=== PATIENT | female | born 1945 | race Caucasian/White ===

== ENCOUNTER 2016-06-02 16:14 | Inpatient (IN) | payer MEDICARE ==
[~2016-06-02] VITALS: Ht 172.7 cm; Wt 74.1 kg
[2016-06-02 22:42] VITALS: BP 137/78; Ht 172.7 cm; Wt 74.1 kg
[2016-06-03 01:00] VITALS: BP 136/76
[2016-06-03 03:31] LABS: BASOPHILS 0.3 % (0.0-2.0); EOSINOPHILS 0.1 % (0-7); HEMOGLOBIN 10.5 g/dL (12-16); IMMATURE GRANULOCYTES 0.1 % (0-5); MCH 34.2 pg (26.0-34.0); MCHC 32.8 g/dL (31.0-37.0); MCV 104.2 fL (80.0-100.0); MEAN PLATELET VOLUME 9.8 fL (7.4-10.4); MONOCYTES 7.1 % (2-11); NEUTROPHILS 79.4 % (40-80); PLATELET COUNT 163 10x3/uL (130-400); RBC 3.07 10x6/uL (4.00-5.40); RDW 13.2 % (11.5-14.5); WBC 7.5 10x3/uL (4.8-10.8)
[2016-06-03 03:43] LABS: APTT 29.7 SECONDS (22.8-39.4); INR 0.99 (0.85-1.17); PROTIME 12.9 SECONDS (11.6-15.0)
[2016-06-03 03:50] LABS: ALBUMIN 3.2 g/dL (3.4-5.0); ALKALINE PHOSPHATASE 44 U/L (46-116); ALT (SGPT) 19 U/L (10-68); BILIRUBIN - TOTAL 0.49 mg/dL (0.2-1.3); CALC OSMOLALITY 282 mosm/kg (275-300); CALCIUM 8.9 mg/dL (8.5-10.1); CHLORIDE - SERUM 104 mmol/L (98-107); CREATININE - SERUM 0.8 mg/dL (0.6-1.3); GLUCOSE 132 mg/dL (74-106); POTASSIUM - SERUM 4.2 mmol/L (3.5-5.1); PROTEIN - SERUM 6.3 g/dL (6.4-8.2); SODIUM 140 mmol/L (136-145); UREA NITROGEN 18 mg/dL (7-18); eGFR NON AFRICAN AMERICAN 75 mL/min (90-120)
[2016-06-03 05:00] VITALS: BP 107/62; BP 125/71; BP 157/74
[2016-06-03 08:12] VITALS: BP 108/69
[2016-06-03] MEDS ORDERED: PAXIL20 MG PO (08:29)
[2016-06-03] MEDS ORDERED: SYNTHROID25 MCG (08:31)
--- NOTE | 2016-06-03 08:53 | NUR ---
PATIENT IS AWAKE, ALERT AND ORIENTED X'S 4. RESPIRATIONS ARE EVEN AND UNLABORED ON ROOM AIR. PATIENT IS REMOVING HER DENTURES. VETERINARY TOXICOLOGIST IS CHANGING LINENS. PATIENT HAS A SLING INTO TO LEFT ARM. PATIENT GOT INTO THE BED. ADMINISTERED PEPCID IV, ORDERED FOR PRE-OP. NURSE FROM SURGERY, AND NURSE ANETHESIS IS IN ROOM TO GET PATIENT. PATIENT DENIES NEEDS. NO SIGNS OF DISTRESS NOTED.
--- NOTE | 2016-06-03 10:06 | NUR ---
0935: UNABLE TO PLACE SCD ON PATIENT. RIGHT ARM RESERVED BECAUSE PATIENT HAS HAD A MASTECTOMY WITH LYMPHNODE REMOVAL. BLOOD PRESSURE CUFF ON LEFT ANKLE AND IV IN RIGHT ANKLE. DR GARCIA NOTIFIED. -ECOSTER
--- NOTE | 2016-06-03 10:11 | NUR ---
1005: PRIOR TO PROCEDURE PT STATED THAT HER WAS HEADED TO THE HOSPITAL. ATTEPTED TO REACH FAMILY EXT 2500,2525, AND 2209. UNABLE TO REACH FAMILY
--- NOTE | 2016-06-03 11:12 | NUR ---
PRE OP BP 160/78. THE PATIENT WAS SHIVERING DEMEROL ADMIN WITHOUT RELIEF AND WAS SHAKING PRIOR TO SURGERY. BP NOTED TO BE MORE LABILE THE MORE SHASKING THAT SHE HAD. WARM BLANKETS PLACED ALL AROUND THE PATIENT.
[2016-06-03 11:27] VITALS: BP 150/78
[2016-06-03 16:48] VITALS: BP 127/62
--- NOTE | 2016-06-03 19:15 | NUR ---
ASSESSMENT COMPLETED, NO DISTRESS NOTED, HOB ELEVATED 40 DEGREES, DSG TO L SHOULDER IN PLACE, ARM IN SLING, IV INFUSING TO R FOOT, DENIES NEEDS AT THIS TIME, FALL PRECATIONS IN PLACE, CL IN REACH, WILL MONITOR
--- NOTE | 2016-06-03 19:33 | NUR ---
PT ON BEDPAN, URINATED 350CC, ASSESSMENT COMPLETED, NO ACUTE DISTRESS NOTED, DSG TO L SHOULDER CDI, HOB ELEVATED 40 DEGREES, DENIES NEEDS AT THIS TIME, FALL PRECAUTION IN PLACE, CL IN REACH, WILL MONITOR
--- NOTE | 2016-06-03 19:41 | NUR ---
URINE OUTPUT OF 350
--- NOTE | 2016-06-03 20:39 | NUR ---
COLACE GIVEN PER MAR, LEAH WELL, L ARM SLING IN PLACE, ICE PACK PLACED PER ORDERS, DENIES NEEDS, HOB ELEVATED, CL IN REACH
[2016-06-03 21:00] VITALS: BP 151/76
--- NOTE | 2016-06-03 23:03 | NUR ---
IV AB'S HUNG PER MAR, LEAH WELL, ASSISTED ON BEDPAN, DENIES FURTHER NEEDS, HOB ELEVATED, ICE PACK IN PLACE TO L SHOULDER, SR'S UP, CL IN REACH
[2016-06-04] VITALS: BP 142/66
--- NOTE | 2016-06-04 02:40 | NUR ---
REPORT GIVEN TO VISHAL FUNEZ
--- NOTE | 2016-06-04 03:13 | NUR ---
PATIENT RESTING COMFORTABLY, NO NEEDS NOTED AT THIS TIME. DILADID LICENSED PRACTICAL VOCATIONAL NURSE IN USE AND CALL LIGHT WITHIN REACH. BED IN LOWEST LOCKED POSITION WITH HOB ELEVATED 30 DEGREES.
[2016-06-04 04:00] VITALS: BP 137/63
[2016-06-04 06:24] LABS: HEMATOCRIT 26.2 % (36.0-48.0); HEMOGLOBIN 8.7 g/dL (12-16)
--- NOTE | 2016-06-04 07:30 | NUR ---
PATIENT RECEIVED ALERT IN BED. NO SIGNS OF DISTRESS NOTED. DENIES NEEDS. SIDE RAILS UP X2. BED IN LOW POSITION. CALL LIGHT IN REACH.
--- NOTE | 2016-06-04 08:00 | NUR ---
PATIENT ASSISTED UP TO CHAIR AT BEDSIDE. WELL TOLERATED. SCHEDULED MEDICATION ADMINISTERED. CALL LIGHT IN REACH. LEFT ARM PROPPED ON PILLOW. DENIES NEEDS.
[2016-06-04] MEDS ORDERED: PERCOCET 10/3251 TA1 PO ×2 (08:25→08:34)
[2016-06-04 08:37] VITALS: BP 165/93
--- NOTE | 2016-06-04 09:51 | NUR ---
Patient Name: GABRIELLE ZARATE Admission Status: ER Accout number: [id number] Admission Date: 06-02-2016 : 1945 Admission Diagnosis: Attending: SAMIA Current LOS: 2 Anticipated DC Date: 06-04-2016 Planned Disposition: Home Primary Insurance: [employer] ADV Discharge Planning Comments: CM MET WITH PATIENT REGARDING D/C NEEDS AND PLANS. PATIENT STATED SHE LIVES WITH HER SPOUSE AND HE WILL PICK HER UP TODAY BETWEEN 12-1PM. PATIENT STATED HER SPOUSE WILL DRIVE HER HOME AT DISCHARGE. PATIENT STATED SHE HAS GRAB BARS TO ENTER HER HOME THROUGH HER GARAGE AND NO STAIRS ONCE INSIDE. PATIENTS PCP IS DR. BARROW AND PHARMACY IS [facility]. PATIENT STATED SHE IS INDEPENDENT WITH HER CARE AND HAS HAND RAILS IN THE BATHROOM AND STATED SHE HAS NO OTHER DME. PATIENT DENIED ANY NEEDS FOR DISCHARGE. CM WILL CONTINUE TO FOLLOW PATIENT WITH D/C NEEDS AND PLANS. PCP DR. BARROW [facility]- [phone] CHANO JULES (SPOUSE) [phone] Accounts Receivable Manager: Nathalie Martinez Is the patient Alert and Oriented? Yes 0 * How many steps to enter\exit or inside your home? 3/GRAB BAR 0 * PCP DR. BARROW 0 * Pharmacy [facility] 0 * Preadmission Environment Home with Family 0 * ADLs Independent 0 * Equipment Other 0 * Other Equipment GRAB BARS IN BATHROOM AND GARAGE ENTRANCE 0 * List name and contact numbers for known caregivers / representatives who currently or will assist patient after discharge: CHANO JULES (SPOUSE) [phone] * Additional services required to return to the preadmission environment? Yes 0 * Can the patient safely return to the preadmission environment? Yes 0 * Has this patient been hospitalized within the prior 30 days at any hospital? No 0 Grand Total: 0
--- NOTE | 2016-06-04 10:30 | NUR ---
IV TO RIGHT FOOT D/C WITH CATH TIP INTACT. SITE COVERED WITH GAUZE AND BANDAID. DRESSING TO LEFT SHOULDER CHANGED. OLD DRESSING REMOVED. 24 TIERRA INTACT. NO REDNESS, INFLAMMATION OR DRAINAGE NOTED. CLEANSED WITH IODINE SWABS AND NEW AQUACEL AG PLACED OVER INCISION. WELL TOLERATED.
--- NOTE | 2016-06-04 12:00 | NUR ---
PATIENT D/C TEACHING AND PAPER PRESCRIPTION PROVIDED. PATIENT STATES UNDERSTANDING. ALL QUESTIONS ANSWERED. AT BEDSIDE.
--- NOTE | 2016-06-04 12:15 | NUR ---
PATIENT D/C HOME WITH . TRANSFERRED DOWNSTAIRS VIA WHEELCHAIR WITH VOLUNTEER
--- NOTE | 2016-07-05 17:40 | OP ---
PATIENT NAME: GABRIELLE ZARATE MEDICAL RECORD: [id number] :47 LOCATION:[id number] ADMISSION DATE:06/02/16 SURGEON: SAVAGE GARCIA MD DATE OF OPERATION: 06/03/2016 Orthopedic Surgery Operative Note PREOPERATIVE DIAGNOSIS: Proximal humerus fracture. POSTOPERATIVE DIAGNOSIS: Proximal humerus fracture. PROCEDURE: Open reduction internal fixation of the left proximal humerus fracture. SURGEON: Savage Garcia MD. ANESTHESIA: General. INTRAOPERATIVE COMPLICATIONS: None. SUMMARY OF PATHOLOGIC FINDINGS: The patient had a fracture of the proximal humerus consistent with the preoperative radiographs. IMPLANTS USED: Timewell proximal humeral articular plate. OPERATIVE SUMMARY IN DETAIL: After obtaining the appropriate preoperative orthopedic surgery consent as well as anesthetic consultation, evaluation and clearance, the patient was brought to the operating room and placed on the table in supine position. After adequate general laryngeal mask was administered, the patient was placed in the beach chair position. All pressure points were well padded to include down leg peroneal pad as well as axillary roll. She was held firmly to the operating table using the vacuum pack suction system. Left upper extremity and shoulder were then prepped and draped in a routine sterile fashion. Deltopectoral incision was made, taken down to the level of the deltoid, which was reflected laterally gently using the brown retractor. ____ was used to retract the conjoined tendon gently medially. Fracture reduction was performed under fluoroscopy and then the plate was affixed to the appropriate position and while under fluoroscopic guidance, serial and sequential drill and fill was done for fixation of the proximal humerus. Final radiographs were submitted of both AP and lateral planes to radiology for review. Wound was copiously irrigated and closed with #1 Vicryl followed by 2-0 Vicryl followed by skin herb. The patient was awakened, LMA was removed. She was taken to recovery room in stable condition. All final needle and sponge counts were correct. TRANSINT:[id number] Voice Confirmation ID: [id number] DOCUMENT ID: [id number] OPERATIVE REPORT [id number] AMAN ZARATEKWASI GARCIA MD, SAVAGE BARTHOLOMEW at 1740 CC: [id number] DICTATION DATE: 07/05/16 1159 DINKEY ENGINE FIRER: 07/05/16 1401 DIS IN 06/04/16 [facility] [address] [place] [address]
== END 2016-06-04 12:27 | disposition home or self-care (01) | DRG 493 ==
LOC: D.ER 16:14 → D.MS 18:50
PROVIDERS: ADMIT Orthopaedic Surgery
PROC: 0PSD04Z Reposition Left Humeral Head with Internal Fixation Device, Open Approach (ICD-10-PCS; principal; 2016-06-03 09:00)
DX: S42.202A Unspecified fracture of upper end of left humerus, initial encounter for closed fracture (principal); D62 Acute posthemorrhagic anemia; W19.XXXA Unspecified fall, initial encounter; E03.9 Hypothyroidism, unspecified; F41.9 Anxiety disorder, unspecified; F32.9 Major depressive disorder, single episode, unspecified; Z72.89 Other problems related to lifestyle; Z85.3 Personal history of malignant neoplasm of breast; Z90.11 Acquired absence of right breast and nipple; Z87.891 Personal history of nicotine dependence

== ENCOUNTER → 2016-07-18 12:30 | Outpatient (CLI) | payer MEDICARE ==
[2016-06-02 22:42] VITALS: BMI 24.8
[~2016-07-18 12:30] MED LIST: PAXIL20 MG PO; PERCOCET 10/3251 TA1 PO; SYNTHROID25 MCG
== END | disposition home or self-care (01) ==
LOC: D.US 12:30
DX: R60.0 Localized edema (principal)